=== PATIENT | female | born 1960 | race Two or more races ===

== ENCOUNTER 2020-09-20 11:43 | Emergency (ER) | payer MEDICAID, OTHER ==
[~2020-09-20] VITALS: Ht 154.9 cm; Wt 72.6 kg
[2020-09-20 12:24] VITALS: BP 130/72
[2020-09-20] MEDS ORDERED: cefTRIAXone 1GM/50ML D5W 50 ML IV ONE (12:45)
[2020-09-20] MEDS ORDERED: ACETAMINOPHEN 325 MG TAB PO ONE (12:45)
== END 2020-09-20 14:08 | disposition home or self-care (01) ==
LOC: ER 11:43
DX: K02.9 Dental caries, unspecified (principal); J45.909 Unspecified asthma, uncomplicated
CPT/HCPCS: 96365; 99284; J0696

== ENCOUNTER 2020-09-21 07:14 | Emergency (ER) | payer MEDICAID, OTHER ==
[~2020-09-21] VITALS: Ht 160 cm; Wt 72.6 kg
[2020-09-21 07:15] VITALS: BP 113/73
[2020-09-21] MEDS ORDERED: IBUPROFEN 600 MG TAB PO ONE (13:00)
== END 2020-09-21 19:21 | disposition home or self-care (01) ==
LOC: ER 07:14
DX: K04.7 Periapical abscess without sinus (principal); J45.909 Unspecified asthma, uncomplicated

== ENCOUNTER 2024-03-07 13:18 | Emergency (ER) | payer MEDICAID ==
[2024-03-07 13:39] VITALS: BP 134/67; PULSE 77; RESP 20; O2SAT 97
== END 2024-03-07 15:24 | disposition left against medical advice (07) ==
LOC: ER 13:18
DX: M54.50 Low back pain, unspecified (principal); Z53.21 Procedure and treatment not carried out due to patient leaving prior to being seen by health care provider

== ENCOUNTER 2024-03-07 20:19 | Emergency (ER) | payer MEDICAID, OTHER | END 2024-03-07 20:42 | disposition left against medical advice (07) | LOC: ER 20:19 | DX: R10.9 Unspecified abdominal pain (principal); Z53.21 Procedure and treatment not carried out due to patient leaving prior to being seen by health care provider ==